=== PATIENT | male | born 1975 | race American Indian/Alaskan Native ===

== ENCOUNTER 2021-10-19 15:14 | Emergency (ER) | payer SELFPAY ==
[2021-10-19] MEDS ORDERED: ONDANSETRON 4 MG/2 ML INJ IV ONE (16:35)
[2021-10-19] MEDS ORDERED: SODIUM CHLORIDE 0.9% 1000 ML 1,000 ML IV ONE (16:35)
--- NOTE | 2021-10-19 16:44 | Emergency Department Report ---
HPI - General Chief Complaint: Abdominal Pain Time Seen by Provider: 10/19/21 16:35 - HPI HPI: 46-year-old -[place] male presents to the emergency department with a 24-hour history of abdominal pain "in the pit of my stomach", as well as nausea with vomiting. Overall he says he has had 6 episodes of vomiting. Currently his abdominal pain is 7 out of 10 in intensity. No known aggravating or alleviating factors. He is unable to keep down any liquids or solids without increasing his nausea with vomiting. No recent travel or sick contacts at home. He has not taken anything for his symptoms prior to presentation. ED Past Medical Hx - Medications Home Medications: Home Medications Medication Instructions Recorded Confirmed Last Taken Type Ondansetron [Zofran Odt] 4 mg PO Q8HR PRN #15 tab.rapdis 10/19/21 Unknown Rx ED Review of Systems ROS: Stated complaint: ABD PAIN Other details as noted in HPI Comment: All other systems reviewed and negative Constitutional: denies: chills, fever Eyes: denies: eye pain, vision change ENT: denies: ear pain, throat pain Respiratory: denies: cough, shortness of breath Cardiovascular: denies: chest pain, palpitations Gastrointestinal: abdominal pain, nausea, vomiting Genitourinary: denies: dysuria, discharge Musculoskeletal: denies: back pain, arthralgia Skin: denies: rash, lesions Neurological: denies: headache, weakness Physical Exam - Physical Exam Vital Signs: Vital Signs 10/19/21 15:49 Temperature 98.6 F Pulse Rate 100 H Respiratory 16 Rate Blood Pressure 166/105 [Left] O2 Sat by Pulse 95 Oximetry Physical Exam: GENERAL: The patient is well-developed well-nourished. HENT: Normocephalic. Atraumatic. Patient has moist mucous membranes. EYES: Extraocular motions are intact. NECK: Supple. Trachea is midline. CHEST/LUNGS: Clear to auscultation. There is no respiratory distress noted. HEART/CARDIOVASCULAR: Regular. There is no tachycardia. There is no murmur. ABDOMEN: Abdomen is soft. Upper abdominal tenderness palpation. No guarding. Patient has normal bowel sounds. There is no abdominal distention. SKIN: Skin is warm and dry. NEURO: The patient is awake, alert, and oriented. The patient is cooperative. The patient has no focal neurologic deficits. Normal speech. MUSCULOSKELETAL: There is no tenderness or deformity. There is no limitation r roxanne of motion. ED Course Vital Signs 10/19/21 15:49 Temperature 98.6 F Pulse Rate 100 H Respiratory 16 Rate Blood Pressure 166/105 [Left] O2 Sat by Pulse 95 Oximetry ED Medical Decision Making - Lab Data Result diagrams: 10/19/21 16:39 10/19/21 16:39 Lab Results 10/19/21 10/19/21 10/19/21 Range/Units 16:39 16:39 16:39 WBC 6.9 (4.5-11.0) K/mm3 RBC 4.38 (3.65-5.03) M/mm3 Hgb 11.7 L (11.8-15.2) gm/dl Hct 37.2 (35.5-45.6) % MCV 85 (84-94) fl MCH 27 L (28-32) pg MCHC 32 (32-34) % RDW 17.4 H (13.2-15.2) % Plt Count 320 (140-440) K/mm3 Lymph % (Auto) 18.8 (13.4-35.0) % [place] % (Auto) 6.2 (0.0-7.3) % Eos % (Auto) 0.7 (0.0-4.3) % Baso % (Auto) 0.4 (0.0-1.8) % Lymph # (Auto) 1.3 (1.2-5.4) K/mm3 [place] # (Auto) 0.4 (0.0-0.8) K/mm3 Eos # (Auto) 0.1 (0.0-0.4) K/mm3 Baso # (Auto) 0.0 (0.0-0.1) K/mm3 Seg Neutrophils % 73.9 H (40.0-70.0) % Seg Neutrophils # 5.1 (1.8-7.7) K/mm3 Sodium 138 (137-145) mmol/L Potassium 4.0 (3.6-5.0) mmol/L Chloride 104.0 (98-107) mmol/L Carbon Dioxide 21 L (22-30) mmol/L Anion Gap 17 mmol/L BUN 8 L (9-20) mg/dL Creatinine 0.6 L (0.8-1.3) mg/dL Estimated GFR > 60 ml/min BUN/Creatinine Ratio 13 % Glucose 197 H (75-100) mg/dL Calcium 9.1 (8.4-10.2) mg/dL Total Bilirubin 0.40 (0.1-1.2) mg/dL Direct Bilirubin < 0.2 (0-0.2) mg/dL Indirect Bilirubin 0.2 mg/dL AST 14 (5-40) units/L ALT 11 (7-56) units/L Alkaline Phosphatase 120 (35-129) units/L Total Protein 6.9 (6.3-8.2) g/dL Albumin 3.6 L (3.9-5) g/dL Albumin/Globulin Ratio 1.1 % Lipase 32 (13-60) units/L Urine Color (Yellow) Urine Turbidity (Clear) Urine pH (5.0-7.0) Ur Specific [place] (1.003-1.030) Urine Protein (Negative) mg/dL Urine Glucose (UA) (Negative) mg/dL Urine Ketones (Negative) mg/dL Urine Blood (Negative) Urine Nitrite (Negative) Ur Reducing Substances Urine Bilirubin (Negative) Urine Ictotest Urine Urobilinogen (<2.0) mg/dL Ur Leukocyte Esterase (Negative) Urine WBC (Auto) (0.0-6.0) /HPF Urine RBC (Auto) (0.0-6.0) /HPF /10/11 Range/Units Unknown WBC (4.5-11.0) K/mm3 RBC (3.65-5.03) M/mm3 Hgb (11.8-15.2) gm/dl Hct (35.5-45.6) % MCV (84-94) fl MCH (28-32) pg MCHC (32-34) % RDW (13.2-15.2) % Plt Count (140-440) K/mm3 Lymph % (Auto) (13.4-35.0) % [place] % (Auto) (0.0-7.3) % Eos % (Auto) (0.0-4.3) % Baso % (Auto) (0.0-1.8) % Lymph # (Auto) (1.2-5.4) K/mm3 [place] # (Auto) (0.0-0.8) K/mm3 Eos # (Auto) (0.0-0.4) K/mm3 Baso # (Auto) (0.0-0.1) K/mm3 Seg Neutrophils % (40.0-70.0) % Seg Neutrophils # (1.8-7.7) K/mm3 Sodium (137-145) mmol/L Potassium (3.6-5.0) mmol/L Chloride (98-107) mmol/L Carbon Dioxide (22-30) mmol/L Anion Gap mmol/L BUN (9-20) mg/dL Creatinine (0.8-1.3) mg/dL Estimated GFR ml/min BUN/Creatinine Ratio % Glucose (75-100) mg/dL Calcium (8.4-10.2) mg/dL Total Bilirubin (0.1-1.2) mg/dL Direct Bilirubin (0-0.2) mg/dL Indirect Bilirubin mg/dL AST (5-40) units/L ALT (7-56) units/L Alkaline Phosphatase (35-129) units/L Total Protein (6.3-8.2) g/dL Albumin (3.9-5) g/dL Albumin/Globulin Ratio % Lipase (13-60) units/L Urine Color Straw (Yellow) Urine Turbidity Clear (Clear) Urine pH 8.0 H (5.0-7.0) Ur Specific [place] 1.005 (1.003-1.030) Urine Protein >500 (Negative) mg/dL Urine Glucose (UA) 150 (Negative) mg/dL Urine Ketones 25 (Negative) mg/dL Urine Blood Negative (Negative) Urine Nitrite Negative (Negative) Ur Reducing Substances Not Reportable Urine Bilirubin Negative (Negative) Urine Ictotest Not Reportable Urine Urobilinogen < 2.0 (<2.0) mg/dL Ur Leukocyte Esterase Negative (Negative) Urine WBC (Auto) < 1.0 (0.0-6.0) /HPF Urine RBC (Auto) 5.0 (0.0-6.0) /HPF - Radiology Data Radiology results: image reviewed interpreted by me: Chest x-ray does not show any acute process. There are no pleural effusions, obvious pneumonia and there is no pneumothorax. No widened mediastinum. Abdominal x-ray shows nonspecific nonobstructive bowel gas. No free air. - Medical Decision Making This patient presents to the emergency department with a 1 day history of abdominal pain, along with nausea and vomiting. On examination he has some mid upper abdominal tenderness to palpation, but the abdomen is soft, nondistended and nontoxic in appearance. Labs are mostly unremarkable except for some minor signs of dehydration. No leukocytosis. No electrolyte derangements. Patient was given a dose of IV Zofran and his nausea has resolved. He received about 200 cc of IV fluid before the IV went bad the patient did not want to be stuck again. He was able to pass an oral challenge. Abdominal x-ray shows nonspecific nonobstructive bowel gas, no free air. Vital signs reassuring throughout his ED course including being afebrile. For all these reasons he appears safe for discharge home at this time. He has been given a prescription for Zofran ODT and instructed to follow-up outpatient with primary care. Critical Care Time: No Critical care attestation.: If time is entered above; I have spent that time in minutes in the direct care of this critically ill patient, excluding procedure time. ED Disposition Clinical Impression: Dehydration Nausea & vomiting Qualifiers: Vomiting type: unspecified Qualified Code(s): R11.2 - Nausea with vomiting, unspecified Abdominal pain Qualifiers: Abdominal location: unspecified location Qualified Code(s): R10.9 - Unspecified abdominal pain Disposition: 01 HOME / SELF CARE / HOMELESS Is pt being admited?: No Condition: Stable Instructions: Abdominal Pain, Adult, Nausea and Vomiting, Adult, Dehydration, Adult Additional Instructions: Increase your oral rehydration. Please follow-up with a primary care physician in the next few days. Return to the emergency department with any worsening of your symptoms, new or concerning symptoms not addressed during this current emergency department visit, or with any acute distress. Prescriptions: Ondansetron [Zofran Odt] 4 mg PO Q8HR PRN #15 tab.rapdis PRN Reason: Nausea Referrals: PRIMARY CARE, [Primary Care Provider] - 2-3 Days Forms: Work/School Release Form(ED) Time of Disposition: 18:47
--- NOTE | 2021-10-19 17:19 | XRay Report ---
XR abd series w cxr 1V INDICATION / CLINICAL INFORMATION: Abd pain. COMPARISON: None available. FINDINGS: SUPPORT DEVICES: None. HEART / MEDIASTINUM: No significant abnormality. LUNGS / PLEURA: Lungs are clear. Costophrenic sulci are sharp. No pneumothorax. ABDOMEN: Nonobstructive bowel gas pattern. No pneumoperitoneum. ADDITIONAL FINDINGS: No significant additional findings. IMPRESSION: 1. No acute findings. 2. Nonobstructive bowel gas pattern. Signer Name: Shaheen Rdz MD Signed: 10/19/2021 5:14 PM Workstation Name: [email or web address]
[2021-10-19 17:23] LABS: Alanine Aminotransferase 11 units/L (7-56); Albumin 3.6 g/dL (3.9-5); Blood Urea Nitrogen 8 mg/dL (9-20); Calcium 9.1 mg/dL (8.4-10.2); Hemolysis Index 21
[2021-10-19 17:24] LABS: BUN/Creatinine Ratio 13; Bilirubin,Direct < 0.2 mg/dL (0-0.2)
[2021-10-19 17:33] LABS: WBC,Urine < 1.0 /HPF (0.0-6.0)
[2021-10-19 17:45] LABS: Basophils % (Auto) 0.4 % (0.0-1.8); Eosinophils # (Auto) 0.1 K/mm3 (0.0-0.4); Eosinophils % (Auto) 0.7 % (0.0-4.3); Hematocrit 37.2 % (35.5-45.6); Hemoglobin 11.7 gm/dl (11.8-15.2); Lymphocytes # (Auto) 1.3 K/mm3 (1.2-5.4); Lymphocytes % (Auto) 18.8 % (13.4-35.0); Mean Corpuscular HGB Conc 32 % (32-34); Mean Corpuscular Volume 85 fl (84-94); Monocytes # (Auto) 0.4 K/mm3 (0.0-0.8); Monocytes % (Auto) 6.2 % (0.0-7.3); Platelet Count 320 K/mm3 (140-440); Red Blood Count 4.38 M/mm3 (3.65-5.03); Red Cell Distribution Width 17.4 % (13.2-15.2)
[2021-10-19 17:55] LABS: Bilirubin,Urine Negative (Negative); Blood,Urine Negative (Negative); Color,Urine Straw (Yellow)
[2021-10-19 17:56] LABS: Protein,Urine >500 mg/dL (Negative); Urobilinogen,Urine < 2.0 mg/dL (<2.0)
[2021-10-19 18:57] VITALS: BP 167/104
== END 2021-10-19 18:56 | disposition home or self-care (01) ==
LOC: ED 15:14
DX: E86.0 Dehydration (principal); R11.2 Nausea with vomiting, unspecified; R10.9 Unspecified abdominal pain
CPT/HCPCS: 36415; 74022; 80048; 80076; 81001; 83690; 85025; 96361; 96374; 99284; J2405; J7030; Q0162

== ENCOUNTER 2022-03-15 21:24 | Emergency (ER) | payer SELFPAY ==
[2022-03-15 21:31] VITALS: BP 132/78
== END 2022-03-17 15:45 | disposition left against medical advice (07) ==
LOC: ED 21:24
DX: Z02.89 Encounter for other administrative examinations (principal); Z53.21 Procedure and treatment not carried out due to patient leaving prior to being seen by health care provider
CPT/HCPCS: 82962

== ENCOUNTER 2022-04-08 08:07 | Emergency (ER) | payer OTHER ==
[2022-04-08] MEDS ORDERED: LACTATED RINGERS 1,000 ML IV ONE (09:20)
[2022-04-08] MEDS ORDERED: ONDANSETRON 4 MG/2 ML INJ IV ONE (09:21)
[2022-04-08] MEDS ORDERED: FAMOTIDINE 20 MG/2 ML INJ IV ONE (09:21)
[2022-04-08 11:10] VITALS: BP 110/78
[2022-04-08 11:28] LABS: Basophils % (Auto) 0.4 % (0.0-1.8); Eosinophils % (Auto) 0.3 % (0.0-4.3); Hematocrit 44.7 % (35.5-45.6); Hemoglobin 14.1 gm/dl (11.8-15.2); Lymphocytes # (Auto) 2.6 K/mm3 (1.2-5.4); Lymphocytes % (Auto) 37.4 % (13.4-35.0); Mean Corpuscular HGB Conc 32 % (32-34); Mean Corpuscular Volume 94 fl (84-94); Monocytes # (Auto) 0.4 K/mm3 (0.0-0.8); Monocytes % (Auto) 5.9 % (0.0-7.3); Red Blood Count 4.75 M/mm3 (3.65-5.03); Red Cell Distribution Width 15.6 % (13.2-15.2)
--- NOTE | 2022-04-08 11:43 | XRay Report ---
CHEST 1 VIEW 04/08/2022 10:32 AM INDICATION / CLINICAL INFORMATION: weakness, vomiting. COMPARISON: 10/19/2021 FINDINGS: SUPPORT DEVICES: None. HEART / MEDIASTINUM: No significant abnormality. LUNGS / PLEURA: No significant pulmonary or pleural abnormality. No pneumothorax. ADDITIONAL FINDINGS: No significant additional findings. IMPRESSION: 1. No acute findings. Signer Name: Tyrone Campos MD Signed: 04/08/2022 11:38 AM Workstation Name: [email or web address]
--- NOTE | 2022-04-08 11:57 | Emergency Department Report ---
HPI - General Chief Complaint: Dizziness PUI?: No Time Seen by Provider: 04/08/22 08:30 - HPI HPI: 46-year-old male brought in by EMS for evaluation of hypotension. Per EMSs report the patient has been having several days of nausea vomiting and was found to have a systolic blood pressure in the 70s upon their arrival. The patient was given 100 cc of normal saline and blood pressure improved to 80 systolic. The patient denies any abdominal pain. No falls or head trauma. He reports that he "just does not feel well." No sick contacts or travel history. No IV drug abuse. Pain currently 0-10 ED Past Medical Hx - Past Medical History Previous Medical History?: No Hx Diabetes: Yes Additional medical history: anxiety - Social History Smoking Status: Current Every Day Smoker Substance Use Type: None - Medications Home Medications: Home Medications Medication Instructions Recorded Confirmed Last Taken Type Ondansetron [Zofran Odt] 4 mg PO Q8HR PRN #15 tab.rapdis 10/19/21 Unknown Rx ED Review of Systems ROS: Stated complaint: LIGHTHEAD VOMITING Other details as noted in HPI Comment: All other systems reviewed and negative Constitutional: no symptoms reported Eyes: as per HPI ENT: as per HPI Respiratory: no symptoms reported Cardiovascular: as per HPI Endocrine: no symptoms reported Gastrointestinal: nausea, vomiting. denies: diarrhea, constipation, hematemesis, melena, hematochezia Genitourinary: denies: urgency, dysuria, frequency, hematuria, discharge, testicular pain, testicular mass Musculoskeletal: denies: back pain, joint swelling, arthralgia, myalgia Skin: as per HPI Physical Exam - Physical Exam Vital Signs: Vital Signs 04/08/22 04/08/22 08:28 11:09 Temperature 97.8 F 98.4 F Pulse Rate 101 H 98 H Respiratory 18 20 Rate Blood Pressure 100/63 Blood Pressure 100/63 110/78 [Left] O2 Sat by Pulse 100 98 Oximetry General: Gen: pt is well appearing, no acute distress HEENT: Normocephalic atraumatic pupils equally round and reactive to light extraocular muscles intact sclera anicteric Neck: Full range of motion, no midline spinal tenderness palpation, no JVD, no carotid bruits, no nuchal rigidity CVS: S1-S2 regular rate and rhythm with no gallops rubs or murmurs, chest wall nontender Pulmonary: Clear to auscultation bilaterally, no wheezes rales or rhonchi Abdomen: Soft nondistended nontender no guarding or rebound tenderness, no palpable deformities or step-offs, normal active bowel sounds, no hepatosplenomegaly, no pulsatile masses : Deferred Extremities: No cyanosis no clubbing no edema, intact distal peripheral pulses, Integumentary: Skin normal, no petechia no purpura no abscess no lacerations no evidence of trauma no evidence of infection Neuro: Patient is awake alert and oriented to person place time situation, mentating well, cranial nerves II through XII intact, no focal neurodeficits, sensation grossly tact Psych: Calm cooperative, mood affect normal ED Course Vital Signs 04/08/22 04/08/22 08:28 11:09 Temperature 97.8 F 98.4 F Pulse Rate 101 H 98 H Respiratory 18 20 Rate Blood Pressure 100/63 Blood Pressure 100/63 110/78 [Left] O2 Sat by Pulse 100 98 Oximetry ED Medical Decision Making - Lab Data Result diagrams: 04/08/22 10:18 - Medical Decision Making 46-year-old male presents with hypotension in the setting of having multiple episodes of nausea and vomiting. Patient is hypotensive upon arrival here. He is profoundly orthostatic on his vital signs. Peripheral IV fluids administered. However prior to completion and the resulting of his blood work, the patient demanded to leave stating "I really just want to go home." Risk of leaving AMA were discussed at length with the patient. Patient per my ass essment has decision-making capacity and is not altered and is not an extremis. Patient encouraged multiple times to remain for the resulting of his blood work as well as to undergo completion of intravenous fluids and reassessment. The patient refused and demanded to leave. Patient left AGAINST MEDICAL ADVICE. Critical Care Time: No Critical care attestation.: If time is entered above; I have spent that time in minutes in the direct care of this critically ill patient, excluding procedure time. ED Disposition Clinical Impression: Orthostatic hypotension, Lactic acidosis Disposition: 07 LEFT AGAINST MEDICAL ADVICE Is pt being admited?: No Does the pt Need Aspirin: No Condition: Stable Referrals: PRIMARY CARE, [Primary Care Provider] - 3-5 Days
[2022-04-08 12:15] LABS: Platelet Count 176 K/mm3 (140-440)
--- NOTE | 2022-04-11 13:46 | Electrocardiograph Report ---
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
== END 2022-04-08 11:09 | disposition left against medical advice (07) ==
LOC: ED 08:07
DX: I95.1 Orthostatic hypotension (principal); E87.2 Acidosis; E11.9 Type 2 diabetes mellitus without complications; F41.9 Anxiety disorder, unspecified; F17.200 Nicotine dependence, unspecified, uncomplicated; Z88.1 Allergy status to other antibiotic agents; Z88.8 Allergy status to other drugs, medicaments and biological substances; Z79.899 Other long term (current) drug therapy
CPT/HCPCS: 36415; 71045; 82140; 82962; 85025; 93005; 96361; 96374; 96375; 99285; J2405; J3490; J7120